=== PATIENT | female | born 1960 | race Caucasian/White ===

== ENCOUNTER 2024-07-31 11:09 | Emergency (ER) | payer OTHER ==
[~2024-07-31] VITALS: Ht 162.6 cm; Wt 53.0 kg
[2024-07-31] MEDS ORDERED: BUPIVACAINE HCL PF 0.5 % 50 MG/10 ML SDV STI ONE (12:20)
[2024-07-31] MEDS ORDERED: LIDOcaine HCl 1% (Local Anesth.) 20 ML VIAL STI ONE (12:25)
[2024-07-31] MEDS ORDERED: POVIDONE IODINE 0.5 OZ/BTL TOP ONE (12:25)
[2024-07-31] MEDS ORDERED: NEOMYCIN-BACITRACIN-POLYMYXIN 0.5 GM/PAK PAK ONE (12:36)
[2024-07-31 12:46] VITALS: BP 162/102
== END 2024-07-31 12:58 | disposition home or self-care (01) | DRG 605 ==
LOC: ED 11:09
PROC: 0HDRXZZ Extraction of Toe Nail, External Approach (ICD-10-PCS; principal; 2024-07-31)
DX: S91.202A Unspecified open wound of left great toe with damage to nail, initial encounter (principal); I73.9 Peripheral vascular disease, unspecified; W22.09XA Striking against other stationary object, initial encounter; Y93.55 Activity, bike riding